=== PATIENT | female | born 1960 | race Caucasian/White ===

== ENCOUNTER 2017-07-31 19:38 | Emergency (ER) | payer MEDICARE, OTHER ==
[2017-07-31 19:38] VITALS: BMI 22.4
--- NOTE | 2017-07-31 19:52 | C.PDOC ---
History Of Present Illness Patient presents to the ER with a complaint of chest pain and back pain worsening since yesterday. Patient describes the pain as a stabbing pain to the back that worsens with deep inspiration and movement. Patient is currently speaking in complete sentences; denies SOB or trauma. Time Seen by Provider: 07/31/17 19:51 Chief Complaint (Nursing): Chest Pain History Per: Patient History/Exam Limitations: no limitations Onset/Duration Of Symptoms: Hrs Current Symptoms Are (Timing): Still Present Severity: Moderate (Discomfort) Pain Scale Rating Of: 4 Quality: Other (Stabbing) Associated Symptoms: denies: Other (SOB) Modifying Factors: None Alleviating Factors: None Recent travel outside of the [place]: No Past Medical History Reviewed: Historical Data, Nursing Documentation, Vital Signs Vital Signs: Last Vital Signs Temp 99.1 F 07/31/17 19:44 Pulse 77 07/31/17 19:44 Resp 18 07/31/17 19:44 BP 136/79 07/31/17 19:44 Pulse Ox 99 07/31/17 21:51 - Medical History PMH: Anemia, Arthritis, Diabetes (type 2), HTN, Osteoporosis (back/right arm), Seizures, Sleep Apnea Surgical History: No Surg Hx Family History: States: No Known Family Hx - Social History Hx Tobacco Use: No Hx Alcohol Use: No Hx Substance Use: No - Immunization History Hx Tetanus Toxoid Vaccination: No Hx Influenza Vaccination: Yes Hx Pneumococcal Vaccination: No Review Of Systems Cardiovascular: Positive for: Chest Pain. Negative for: Palpitations Respiratory: Negative for: Shortness of Breath Musculoskeletal: Positive for: Back Pain Physical Exam - Physical Exam Appears: Non-toxic Skin: Warm, Dry Head: Normacephalic Oral Mucosa: Moist Chest: Symmetrical Cardiovascular: Rhythm Regular Respiratory: No Rales, No Rhonchi, No Wheezing Gastrointestinal/Abdominal: Soft, No Tenderness Back: Other (Reproducible pain to left mid scapular area) Neurological/Psych: Oriented x3 ED Course And Treatment - Laboratory Results Result Diagrams: 07/31/17 20:09 07/31/17 20:09 ECG: Interpreted By Me, Viewed By Me ECG Rhythm: Sinus Rhythm (76), ST/T Changes (inf lat ischemic changes) O2 Sat by Pulse Oximetry: 99 (Room air) Pulse Ox Interpretation: Normal - Radiology CXR: Interpreted by Me, Viewed By Me CXR Interpretation: No: Infiltrates, Fracture, Pnemothorax Progress Note: EKG and blood work ordered. Aspirin administered. pt feels fine and wants to go home Reevaluation Time: 22:15 Reassessment Condition: Improved Disposition Counseled Patient/Family Regarding: Studies Performed, Diagnosis - Disposition Referrals: Violetta Castellon MD [Staff Provider] - Disposition: HOME/ ROUTINE Disposition Time: 19:52 Condition: FAIR Additional Instructions: Please return if symptoms recur Instructions: Back Pain (ED), Costochondritis (ED) Forms: [employer] (E[place]ian) - Clinical Impression Clinical Impression: Back pain, Costochondral chest pain - Scribe Statement The provider has reviewed the documentation as recorded by the Scribe Satnam Loera All medical record entries made by the Louisaibe were at my direction and personally dictated by me. I have reviewed the chart and agree that the record accurately reflects my personal performance of the history, physical exam, medical decision making, and the department course for this patient. I have also personally directed, reviewed, and agree with the discharge instructions and disposition.
[2017-07-31] MEDS ORDERED: Aspirin 325 mg EC Tablets PO STA (19:54)
[2017-07-31] MEDS ORDERED: Aspirin 325 mg EC Tablets PO ONE (20:13)
[2017-07-31 20:16] LABS: BASO # 0.1 K/uL (0.0-0.2); BASO % 0.8 % (0.0-2.0); EOS # 0.2 K/uL (0.0-0.7); EOS % 2.2 % (0.0-4.0); HEMATOCRIT 34.6 % (34.0-47.0); LYMPH # 2.8 K/uL (1.0-4.3); LYMPH % 32.8 % (20.0-40.0); MEAN CELL VOLUME 89.7 fL (81.0-99.0); MEAN CORPUSCULAR HEMOGLOBIN 30.4 pg (27.0-31.0); MEAN CORPUSCULAR HGB CONC 33.9 g/dL (33.0-37.0); MEAN PLATELET VOLUME 9.2 fL (7.2-11.7); MONO # 0.6 K/uL (0.0-0.8); MONO % 7.3 % (0.0-10.0); RED CELL DISTRIBUTION WIDTH 14.9 % (11.5-14.5); WHITE BLOOD COUNT 8.5 K/uL (4.8-10.8)
[2017-07-31 20:40] LABS: ALB/GLOB RATIO 1.4 (1.0-2.1); ALKALINE PHOSPHATASE 94 U/L (38-126); ALT/SGPT 32 U/L (9-52); AST/SGOT 29 U/L (14-36); BILIRUBIN,TOTAL 0.6 mg/dL (0.2-1.3); BLOOD UREA NITROGEN 19 mg/dL (7-17); CALCIUM 8.7 mg/dl (8.6-10.4); CARBON DIOXIDE 24 mmol/L (22-30); CHLORIDE 99 mmol/L (98-107); GFR AFRICAN-AMERICAN > 60; GLUCOSE,RANDOM 210 mg/dL (65-105); POTASSIUM 4.6 mmol/L (3.6-5.2); SODIUM 133 mmol/L (132-148); TOTAL PROTEIN 7.7 g/dL (6.3-8.3)
[2017-07-31 22:52] VITALS: BP 148/91; PULSE 79; RESP 20; TEMP 98.6; O2SAT 100
--- NOTE | 2017-08-01 10:05 | RAD ---
PROCEDURE: CHEST RADIOGRAPH, 1 VIEW HISTORY: chest pain COMPARISON: Comparison is made to 10/18/2014 FINDINGS: LUNGS: No focal infiltrate or consolidation. PLEURA: No pneumothorax or pleural fluid seen. CARDIOVASCULAR: Normal. OSSEOUS STRUCTURES: No significant abnormalities. VISUALIZED UPPER ABDOMEN: Normal. OTHER FINDINGS: None. IMPRESSION: No active disease.
--- NOTE | 2017-08-01 13:27 | CARD ---
APPROVED REPORT EKG Measurement Heart [id number] <Conclusion> Normal sinus rhythm Minimal voltage criteria for LVH, may be normal variant ST & T wave abnormality, consider inferolateral ischemia Abnormal ECG
== END 2017-07-31 22:52 | disposition home or self-care (01) ==
LOC: C.ER 19:38 → SUPCPDRO 19:38 → C.ER 22:52
DX: R07.1 Chest pain on breathing (principal); M54.9 Dorsalgia, unspecified; I10 Essential (primary) hypertension; E11.9 Type 2 diabetes mellitus without complications
CPT/HCPCS: 71010; 80053; 82948; 84484; 85025; 93005; 96374; 99284; J1885